=== PATIENT | female | born 1975 | race Caucasian/White ===

== ENCOUNTER 2016-08-03 12:49 | Emergency (ER) | payer OTHER ==
[~2016-08-03] VITALS: Ht 162.6 cm; Wt 99.8 kg
[~2016-08-03 12:49] MED LIST: ADAP45GE3; ALDACTONE25 MG; AMOX500C2; CLON0.5T3; HUMIRA; HYDR1CAP2; INFLIXIMAB IV; METH4TAB PO; METR500T; PRED5DRO2I OP; TRIA15OI9; ZLP10T; ZLP10T PO; [UNRECOGNIZED DRUG - OTHER]
--- OUTSIDE RECORDS SUMMARY | 2016-08-03 12:57 | XMS REPORT | Continuity of Care Document ---
Author Author [facility] Organization [facility] Address Unknown Phone Unavailable Care Team Providers Care Medical Assembler Name Role Phone Maynor Correa PCP [phone] Source Comments Some departments are not documenting in the electronic medical record. If you do not see the information that you expected, contact Release of Information in the Health Information Management department at [phone] for further assistance in locating additional records.[facility] Active Allergies and Adverse Reactions Allergen Noted Date Severity Reactions Comments Contrast Dye Iv, Iodine 08/22/2012 Medium RASH, ITCHING 08/22/12, Following MRI of Containing head, pt report itching, scratchy throat and rash to upper chest area Ultram 01/28/2011 Medium HIVES Current Medications Prescription Sig. Disp. Refills Start End Date Status Date zolpidem CR (AMBIEN CR) Take 12.5 mg by mouth at Active 12.5 mg tablet bedtime daily. dicyclomine (BENTYL) 10 Take 1-2 caps every 8 90 Cap 1 09/08/19 Active mg capsule hours as needed. 15 cholecalciferol (VITAMIN Take 1 Tab by mouth 90 Tab 3 09/11/19 Active D-3) 1,000 units tablet daily. 15 budesonide/formoterol Inhale 2 Puffs by mouth Active (SYMBICORT) 160/4.5 mcg twice daily as needed. HFAA inhalation hyoscyamine (ANASPAZ; Place 1 Tab under tongue 90 Tab 3 01/25/20 Active NULEV; SYMAX FASTABS; before meals and at 15 HYOMAX-FT; ED-SPAZ; bedtime as needed for OSCIMIN) 0.125 mg rapid Cramps. dissolve tablet VEDOLIZUMAB (ENTYVIO IV) Administer through vein Active as directed. tretinoin (RETIN-A) 0.05 Use pea-sized amount to 45 g 11 07/17/19 Active % topical cream entire face nightly, 16 starting out twice a week and increasing to nightly as tolerated. erythromycin/benzoyl Apply to acne prone skin 45 g 11 07/17/19 Active peroxide(+) (BENZAMYCIN) daily. 16 3 % / 5 % topical gel diphenoxylate/atropine Take 1 Tab by mouth four 120 Tab 1 08/21/19 Active (LOMOTIL) 2.5/0.025 mg times daily as needed for 16 tablet Diarrhea. diphenhydrAMINE Take 25 mg by mouth at Active (BENADRYL) 25 mg tablet bedtime daily. cycloSPORINE (RESTASIS) Apply 1 Drop to both eyes Active 0.05 % ophthalmic at bedtime daily. emulsion ondansetron (ZOFRAN) 4 mg Take 4 mg by mouth every Active tablet 8 hours as needed for Nausea. phenazopyridine Take 1 Tab by mouth three 10 Tab 0 08/27/19 Active (PYRIDIUM) 100 mg tablet times daily as needed for 16 Pain (dysuria). cyanocobalamin (VITAMIN INJECT 1ML INTO THE 1 mL 12 09/19/19 Active B-12, RUBRAMIN) 1,000 MUSCLE DIRECTED EVERY 16 mcg/mL injection 30 DAYS fluocinonide (LIDEX) 0.05 Apply to affected area 60 g 3 10/15/19 Active % topical ointment twice daily. 16 doxycycline(+) Take 1 cap twice per day 60 Cap 1 01/13/20 Active (VIBRAMYCIN) 100 mg for 6 weeks. 16 capsule promethazine (PHENERGAN) Take 1 Tab by mouth every 30 Tab 3 02/11/20 Active 25 mg tablet 6 hours as needed for 16 Nausea. SUMAtriptan succinate Take 1 Tab by mouth every 9 Tab 5 02/12/20 Active (IMITREX) 25 mg tablet 2 hours as needed for 16 Migraine symptoms. Dose may be repeated in 2 hours if needed. Max of 8 tablets in [address](+) Take 1 Cap by mouth twice 60 Cap 5 04/20/20 Active (PRILOSEC) 40 mg capsule daily before meals. 16 Indications: GASTROESOPHAGEAL REFLUX spironolactone Take 2 Tabs by mouth 60 Tab 2 04/20/20 Active (ALDACTONE) 50 mg tablet daily. Take with food. 16 valACYclovir (VALTREX) Take 4 tablets by mouth, 80 Tab 0 04/20/20 Active 500 mg tablet may repeat in 12 hours 16 for herpes outbreak as needed montelukast (SINGULAIR) Take 1 Tab by mouth at 90 Tab 3 05/08/20 Active 10 mg tablet bedtime daily. 16 nortriptyline (PAMELOR) Take 2 Caps by mouth at 60 Cap 5 05/15/20 Active 25 mg capsule bedtime daily. Take 25 mg 16 daily x 7 days, then increase to 50 mg daily. cholecalciferol(+) Take 1 cap by mouth every 12 Cap 0 05/27/20 Active (Vitamin D3) 50,000 units 7 days for a total of 12 16 capsule weeks. famotidine(+) (PEPCID) 40 Take 1 Tab by mouth at 30 Tab 5 05/27/20 Active mg tablet bedtime daily. 16 Active Problems Problem Noted Date Cough variant asthma 05/10/2016 Gastroesophageal reflux disease without esophagitis 05/10/2016 Costochondritis 05/08/2016 Chronic daily headache 07/19/2015 Overview: Her headache appears to be related to her medication use. Entyvio, valacyclovir, amaranthine can cause headaches. Polypharmacy is likely responsible for her chronic daily headaches. She reports snoring, pauses in respirations in sleep and daytime sleepiness. She can have LIZZ, causing her headaches. L ast Assessment & Plan: Will get MRI head W&WO contrast, as there was a concern for PML with her being on ENTYVIO. Will get sleep study and referral to Dr. Hartman for evaluation. Start Zonegran 100 Qdya and titrate to 100mg BID. 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 Having voiding dysfunction @ time as well, but was minimal. 2014 persistent microscopic hematuria and significant urgency, frequency ([id number]). 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 PVR 179mL, 161mL. - UDS on 09/25/15 to eval for overactivity and emptying - Will hold off on anticholinergics at this point given high PVRs Pleuritis 05/21/2015 Chronic cough 05/21/2015 Acute sinusitis 05/21/2015 Crohn's disease with intestinal obstruction (HCC) 03/20/2015 Persistent cough 12/10/2014 Depression, major, recurrent, mild (HCC) 05/04/2013 IUD 02/26/2013 Contraception management 02/26/2013 Dysmenorrhea 02/26/2013 Pelvic pain 01/26/2013 Dyspareunia 01/26/2013 Migraines 10/03/2012 Crohn's disease (HCC) 05/16/2012 Last Assessment & Plan: No signs of active inflammation in the eye today. Recommend that the patient stay off the lotemax and return for evaluation with me or Dr. Herrera if she has recurrence of her red eye. 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 Most Recent Encounters Date Type Specialty Providers Description 08/03/2016 Telephone Gastroenterology Jean Claude Bell MD Abdominal pain 07/29/2016 Infusion Infusion Jean Claude Bell MD Crohn's disease of small intestine with intestinal obstruction (HCC) (Primary Dx); Crohn's disease with intestinal obstruction, unspecified gastrointestinal tract location; Crohn's disease with other complication (HCC) 07/03/2016 Orders Only GastroenterJean Claude Vergara MD Hyperkalemia; Medication monitoring encounter 06/19/2016 Patient Letter Jean Claude Solorzano MD 06/17/2016 Infusion Infusion Jean Claude Bell MD Crohn's disease of small intestine with intestinal obstruction (HCC) (Primary Dx); Crohn's disease with intestinal obstruction, unspecified gastrointestinal tract location (HCC); Crohn's disease with other complication (HCC) 06/15/2016 Telephone Gastroenterology Jean Claude Bell MD Follow-up Phone Call; Elevated Blood Pressure 06/04/2016 Procedure visit Neurology Shaq Vasquez MD Chronic daily headache (Primary Dx) 06/04/2016 Telephone Gastroenterology Jean Claude Bell MD Insurance Concerns 06/03/2016 Documentation Dermatology Holland Oliveros MD 06/03/2016 Telephone Neurology Shaq Vasuqez MD Other - called ([facility]) to check the status of a PA for (Botox) and was advised that it had been approved per Emmanuelle. 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) (Primary Dx); Fever, unspecified fever cause; Gastroesophageal reflux disease with esophagitis 05/27/2016 Telephone Gastroenterology Jean Claude Bell MD Results 05/26/2016 Hospital Radiology Jean Claude Bell MD Encounter 05/25/2016 [facility] Jean Claude Bell MD Crohn's colitis (HCC) Encounter 05/25/2016 Endo Rslt Enc Maynor Correa MD 05/25/2016 Anesthesia Mariela Galvan DO Event 05/25/2016 Surgery Rachel Huff MD ESOPHAGOGASTRODUODENOSCOP Y with MAC with any provider as patient to have MRE on same day of this procedure at [facility] re: Crohn's 05/22/2016 Telephone Gastroenterology Jean Claude Bell MD Appointment Question 05/22/2016 Screening Form 05/18/2016 Telephone Gastroenterology Jean Claude Bell MD Patient Questions 05/15/2016 [facility] Gary Herrera, Crohn's disease, Encounter unspecified, with unspecified complications (HCC) 05/15/2016 Office Visit Neurology Lea Bruno MD Crohn's disease with complication, unspecified gastrointestinal tract location (HCC) (Primary Dx); Nutritional deficiency; Personal history of nutritional deficiency; Nonspecific abnormal serum enzyme levels 05/14/2016 Hospital Radiology Isamar Paovn MD Encounter 05/14/2016 Hospital Radiology Doctor, Miscellaneous Encounter 05/13/2016 Ancillary Obstetrics & Gynecology Isamar Pavon MD Microcalcification of Orders left breast on mammogram (Primary Dx) 05/13/2016 Orders Only Obstetrics & Gynecology Isamar Pavon MD Microcalcification of left breast on mammogram (Primary Dx) 05/08/2016 Hospital Radiology Isamar Pavon MD Encounter 05/08/2016 Hospital Radiology Isamar Pavon MD Encounter 05/08/2016 Office Visit Pulmonology Bobo Irizarry MD Chronic cough ( Primary Dx); Crohn's disease without complication, unspecified gastrointestinal tract location (HCC); Costochondritis; Cough variant asthma; Gastroesophageal reflux disease without esophagitis 05/08/2016 Ancillary Obstetrics & Gynecology Isamar Pavon MD Inconclusive mammography Orders (Primary Dx) 05/08/2016 Orders Only Neurology Lea Bruno MD Other migraine without status migrainosus, not intractable (Primary Dx) 05/05/2016 Telephone Gastroenterology Jean Claude Bell MD Test 05/04/2016 Infusion Infusion Jean Claude Bell MD Crohn's disease of small intestine with intestinal obstruction (HCC) (Primary Dx); Crohn's disease with intestinal obstruction, unspecified gastrointestinal tract location (HCC); Crohn's disease with other complication (HCC) 05/04/2016 Orders Only Obstetrics & Gynecology Isamar Pavon MD Inconclusive mammography (Primary Dx) Social History Tobacco Use Types Packs/Day Years Used Date Never Smoker Smokeless Tobacco: Never Used Alcohol Use Drinks/Week oz/Week Comments No 0 Standard 0.0 drinks or equivalent Last Filed Vital Signs Vital Sign Reading Time Taken Blood Pressure 120/78 07/29/2016 4:42 PM [employer] REPAIRER Pulse 96 07/29/2016 4:42 PM [employer] REPAIRER Temperature 36.6 C (97.9 F) 07/29/2016 2:38 PM [employer] REPAIRER Respiratory Rate 16 05/27/2016 1:11 PM [employer] REPAIRER Height 1.638 m (5' 4.49") 06/17/2016 4:17 PM [employer] REPAIRER Weight 99 kg (218 lb 4.1 oz) 06/17/2016 4:17 PM [employer] REPAIRER Body Mass Index 36.9 06/17/2016 4:17 PM [employer] REPAIRER Oxygen Saturation 99% 06/17/2016 4:19 PM [employer] REPAIRER Plan of Care Date Type Specialty Providers Description 08/20/2016 Appointment Gastroenterology Jean Claude Bell MD [address] [place] [address] [phone] (Fax) 08/21/2016 Appointment Neurology 09/09/2016 Appointment Infusion 10/14/2016 Appointment Neurology Shaq Vasquez MD [address] [place] [address] [phone] (Fax) Health Maintenance Due Date Last Done Comments Physical (Comprehensive) 1983 Exam Pertussis Vaccine 1987 Tetanus Vaccine 1993 Influenza Vaccine 02/06/2016 Breast Cancer Screening 04/29/2017 04/29/2016 Cervical Cancer Screening 04/06/2019 04/06/2016, 01/25/2013 Procedures from Last 3 Months Procedure Name Priority Date/Time Associated Diagnosis Comments LA CHEMODERVATE Routine 06/04/2016 Chronic daily headache Results for this FACIAL/TRIGEM/CERV MUSC 1:52 PM [employer] REPAIRER procedure are in the MIGRAINE results section. LA BOTULINUM TOXIN A PER Routine 06/04/2016 Chronic daily headache Results for this UNIT 1:52 PM [employer] REPAIRER procedure are in the results section. PROCEDURE RECORD-SCAN 05/27/2016 Results for this 12:47 PM [employer] REPAIRER procedure are in the results section. ESOPHAGOGASTRODUODENOSCOP 05/25/2016 Crohn's colitis (HCC) Y with MAC with any 4:35 PM [employer] REPAIRER provider as patient to have MRE on same day of this procedure at [facility] re: Crohn's Special Needs Latoya cld & sched appt / She will let pt know appt date/time 05/05/16 @ 159 Results from Last 3 Months COMPREHENSIVE METABOLIC PANEL (07/29/2016 2:36 PM)Only the most recent of 3 results within the time period is included. Component Value Range Sodium 136 (L) 137-147 MMOL/L Potassium 3.7 3.5-5.1 MMOL/L Chloride 103 98-110 MMOL/L Glucose 121 (H) 70-100 MG/DL Blood Urea Nitrogen 7 7-25 MG/DL Creatinine 0.72 0.4-1.00 MG/DL Calcium 9.4 8.5-10.6 MG/DL Total Protein 7.2 6.0-8.0 G/DL Total Bilirubin 0.6 0.3-1.2 MG/DL Albumin 4.4 3.5-5.0 G/DL Alk Phosphatase 47 25-110 U/L AST (SGOT) 14 7-40 U/L CO2 24 21-30 MMOL/L ALT (SGPT) 17 7-56 U/L Anion Gap 9 3-12 eGFR Non >60Comment: >60 mL/min The eGFR is not validated for use in drug dosing adjustments. Continue to use estimated creatinine clearance per dosing reference text. Please contact the Clinical Pharmacist for questions. eGFR >60Comment: >60 mL/min The eGFR is not validated for use in drug dosing adjustments. Continue to use estimated creatinine clearance per dosing reference text. Please contact the Clinical Pharmacist for questions. Specimen Blood CBC (07/29/2016 2:36 PM)Only the most recent of 3 results within the time period is included. Component Value Range White Blood Cells 7.5 4.5-11.0 K/UL RBC 4.70 4.0-5.0 M/UL Hemoglobin 14.3 12.0-15.0 GM/DL Hematocrit 43.2 36-45 % MCV 91.9 80-100 FL MCH 30.3 26-34 PG MCHC 33.0 32.0-36.0 G/DL RDW 12.3 11-15 % Platelet Count 361 150-400 K/UL MPV 8.1 7-11 FL Specimen Blood BASIC METABOLIC PANEL (06/25/2016) Component Value Range Sodium 138 Potassium 4.2 Chloride 99 CO2 27 Blood Urea Nitrogen 9 Creatinine 0.65 Glucose 93 Calcium 9.8 Specimen Blood CHEMODENERVATION (06/04/2016 1:52 PM) Narrative Shaq Vasquez MD 06/04/20161:52 PM Botulinum toxin injection for chronic daily headaches This is patient's first round of injections. Patient has at least 21 days of headache per month, with an average duration of 4 hours or more, and at least half had migrainous features. Dose in Units: 155 Units drawn up 155 Units discarded 0 Procedure Note: Using a concentration of 5 units/ 0.1 cc, the patient received 31 injections of five units of Botox into the face, head, neck and shoulder locations for the PREEMPT protocol (Kezia GRANT, and coauthors. Cephalalgia, 2010;30:793) Right Left Procerus One in the midline Trolley Coach Driver supercilli one one Frontalis two two Temporalis four four Occipitalis three three Sub-occipital two two Tapezius three three Adverse effects at time of injection: None Follow up: Clinc6 weeks Target time for next injection: 13 weeks Was patient given the biological specific REMS sheet? No Lot number: [id number] Expiry date: 01/2019 Dr. Bruno did these injections under my direct supervision and with my assistance MONICA Vasquez MD, MPH PROCEDURE RECORD-SCAN (05/27/2016 12:47 PM) Narrative Ordered by an unspecified provider. MRI PELVIS WO/W CONTRAST (05/26/2016 1:25 PM) Impressions Unchanged unremarkable MR enterography. Approved by Kaden Pelaez M.D. on 05/26/2016 3:02 PM By my electronic signature, I attest that I have personally reviewed the images for this examination and formulated the interpretations and opinions expressed in this report Finalized by Scotty Valle M.D. on 05/26/2016 3:31 PM. Dictated by Kaden Pelaez M.D. on 05/26/2016 2:30 PM. Narrative MRI ABDOMEN AND PELVIS Clinical Indication: Crohn's colitis, with intestinal obstruction. Technique:Multisequence and multiplanar MR imaging was obtained through the abdomen and pelvis before and following the administration of IV gadolinium contrast. IV Contrast:Multihance Bowel contrast: Breeza and water. Magnet:3 Rosette Siemens Comparison: Prior MRI September 26, 2014. ABDOMEN FINDINGS: Lower Thorax: Unremarkable. Liver and Biliary system: There is a tiny right hepatic cyst. The liver is otherwise unremarkable. Spleen: Unremarkable. Adrenal Glands and Kidneys: Unremarkable. Pancreas and Retroperitoneum: Unremarkable. Aorta and Major Vessels: Unremarkable. Bowel, Mesentery and Peritoneal space: There is poor distention of multiple small bowel loops secondary to patient intolerance of oral contrast. There is no evidence of small bowel obstruction. No areas of bowel wall thickening or mucosal hyperenhancement are identified. Pelvis findings: Pelvis: There is an IUD within the uterus. There is a small probable right corpus luteum ovarian cyst. The pelvis is otherwise unremarkable. Abdominal wall and Osseous Structures: Unremarkable. Procedure Note Interface, Radiant Results - Tue May 26, 2016 3:34 PM [employer] REPAIRER MRI ABDOMEN AND PELVIS Clinical Indication: Crohn's colitis, with intestinal obstruction. Technique: Multisequence and multiplanar MR imaging was obtained through the abdomen and pelvis before and following the administration of IV gadolinium contrast. IV Contrast:Multihance Bowel contrast: Breeza and water. Magnet:3 Rosette Siemens Comparison: Prior MRI September 26, 2014. ABDOMEN FINDINGS: Lower Thorax: Unremarkable. Liver and Biliary system: There is a tiny right hepatic cyst. The liver is otherwise unremarkable. Spleen: Unremarkable. Adrenal Glands and Kidneys: Unremarkable. Pancreas and Retroperitoneum: Unremarkable. Aorta and Major Vessels: Unremarkable. Bowel, Mesentery and Peritoneal space: There is poor distention of multiple small bowel loops secondary to patient intolerance of oral contrast. There is no evidence of small bowel obstruction. No areas of bowel wall thickening or mucosal hyperenhancement are identified. Pelvis findings: Pelvis: There is an IUD within the uterus. There is a small probable right corpus luteum ovarian cyst. The pelvis is otherwise unremarkable. Abdominal wall and Osseous Structures: Unremarkable. IMPRESSION Unchanged unremarkable MR enterography. Approved by Kaden Pelaez M.D. on 05/26/2016 3:02 PM By my electronic signature, I attest that I have personally reviewed the images for this examination and formulated the interpretations and opinions expressed in this report Finalized by Scotty Valle M.D. on 05/26/2016 3:31 PM. Dictated by Kaden Pelaez M.D. on 05/26/2016 2:30 PM. MRI ABD WO/W CONTRAST (05/26/2016 1:25 PM) Impressions Unchanged unremarkable MR enterography. Approved by Kaden Pelaez M.D. on 05/26/2016 3:02 PM By my electronic signature, I attest that I have personally reviewed the images for this examination and formulated the interpretations and opinions expressed in this report Finalized by Scotty Valle M.D. on 05/26/2016 3:31 PM. Dictated by Kaden Pelaez M.D. on 05/26/2016 2:30 PM. Narrative MRI ABDOMEN AND PELVIS Clinical Indication: Crohn's colitis, with intestinal obstruction. Technique:Multisequence and multiplanar MR imaging was obtained through the abdomen and pelvis before and following the administration of IV gadolinium contrast. IV Contrast:Multihance Bowel contrast: Breeza and water. Magnet:3 Rosette Siemens Comparison: Prior MRI September 26, 2014. ABDOMEN FINDINGS: Lower Thorax: Unremarkable. Liver and Biliary system: There is a tiny right hepatic cyst. The liver is otherwise unremarkable. Spleen: Unremarkable. Adrenal Glands and Kidneys: Unremarkable. Pancreas and Retroperitoneum: Unremarkable. Aorta and Major Vessels: Unremarkable. Bowel, Mesentery and Peritoneal space: There is poor distention of multiple small bowel loops secondary to patient intolerance of oral contrast. There is no evidence of small bowel obstruction. No areas of bowel wall thickening or mucosal hyperenhancement are identified. Pelvis findings: Pelvis: There is an IUD within the uterus. There is a small probable right corpus luteum ovarian cyst. The pelvis is otherwise unremarkable. Abdominal wall and Osseous Structures: Unremarkable. Procedure Note Interface, Radiant Results - Tue May 26, 2016 3:34 PM [employer] REPAIRER MRI ABDOMEN AND PELVIS Clinical Indication: Crohn's colitis, with intestinal obstruction. Technique: Multisequence and multiplanar MR imaging was obtained through the abdomen and pelvis before and following the administration of IV gadolinium contrast. IV Contrast:Multihance Bowel contrast: Breeza and water. Magnet:3 Rosette Siemens Comparison: Prior MRI September 26, 2014. ABDOMEN FINDINGS: Lower Thorax: Unremarkable. Liver and Biliary system: There is a tiny right hepatic cyst. The liver is otherwise unremarkable. Spleen: Unremarkable. Adrenal Glands and Kidneys: Unremarkable. Pancreas and Retroperitoneum: Unremarkable. Aorta and Major Vessels: Unremarkable. Bowel, Mesentery and Peritoneal space: There is poor distention of multiple small bowel loops secondary to patient intolerance of oral contrast. There is no evidence of small bowel obstruction. No areas of bowel wall thickening or mucosal hyperenhancement are identified. Pelvis findings: Pelvis: There is an IUD within the uterus. There is a small probable right corpus luteum ovarian cyst. The pelvis is otherwise unremarkable. Abdominal wall and Osseous Structures: Unremarkable. IMPRESSION Unchanged unremarkable MR enterography. Approved by Kaden Pelaez M.D. on 05/26/2016 3:02 PM By my electronic signature, I attest that I have personally reviewed the images for this examination and formulated the interpretations and opinions expressed in this report Finalized by Scotty Valle M.D. on 05/26/2016 3:31 PM. Dictated by Kaden Pelaez M.D. on 05/26/2016 2:30 PM. EGD (05/25/2016 5:26 PM) Component Value Range Provation Report Patient Name: Brett Franz Procedure Date: 05/25/2016 5:26 PM CSN: [id number] Date of : 1975 Gender: Female Attending Physician: Rachel Huff MD Procedure: Upper GI endoscopy Indications: He artburn, Nausea, long standing history of CD, on entyvio. Providers: Rachel Huff MD (Doctor), Marco Antonio Saavedra MD (Fellow), Roseann Marie (Nurse), Magda Redd Public Service Administrator (Public Service Administrator) Referring Physician: Maynor Correa Medications: Mo nitored Anesthesia Care Complications: No immediate complications. Procedure: Pre-Anesthesia Assessment: - Prior to the procedure, a History and Physical was performed, and patient medications and allergies were reviewed. The patient's tolerance of previous anesthesia was also reviewed. The risks and benefits of the procedure and the sedation options and risks were discussed with the patient. All questions were answered, and informed consent was obtained. Prior Anticoagulants: The patient has taken no previous anticoagulant or antiplatelet agents. ASA Grade Assessment: III - A patient with severe systemic disease. After reviewing the risks and benefits, the patient was deemed in satisfactory condition to undergo the procedure. After obtaining informed consent, the endoscope was passed under direct vision. Throughout the procedure, the patient's blood pressure, pulse, and oxygen saturations were monitored continuously. The Endoscope [id number] was introduced through the mouth, and advanced to the third part of duodenum. The upper GI endoscopy was accomplished without difficulty. The patient tolerated the procedure well. Findings: Esophagogastric landmarks were identified: the gastroesophageal junction was found at 35 cm and the site of hiatal narrowing was found at 38 cm from the incisors. A 3 cm hiatus hernia was present. LA Grade A (one or more mucosal breaks less than 5 mm, not extending between tops of 2 mucosal folds) esophagitis with no bleeding was found in the lower third of the esophagus. The entire examined stomach was normal. The examined duodenum was normal. Impression: - Esophagogastric landmarks identified. - 3 cm hiatus hernia. - LA Grade A esophagitis. - Normal stomach. - Normal examined duodenum. - No evidence of active Crohn's disease. - No specimens collected. Estimated Blood Loss: Estimated blood loss: none. Recommendation: - Patient has a contact number available for emergencies. The signs and symptoms of potential delayed complications were discussed with the patient. Return to normal activities tomorrow. Written discharge instructions were provided to the patient. - Resume previous diet. - Continue present medications. - Return to referring physician. Scope In: 5:26:55 PM Scope Out: 5:31:31 PM Total Procedure Duration Time 0 hours 4 minutes 36 seconds Procedure Code(s): --- Professional --- 22401, Esophagogastroduodenoscopy, flexible, transoral; diagnostic, including collection of specimen(s) by brushing or washing, when performed (separate procedure) Diagnosis Code(s): --- Professional --- K44.9, Diaphragmatic hernia without obstruction or gangrene K20.9, Esophagitis, unspecified R12, Heartburn R11.0, Nausea CPT copyright 2015 [employer]. All rights reserved. The codes documented in this report are preliminary and upon soda clerk review may be revised to meet current compliance requirements. Attending Participation: I was present and participated during the entire procedure, including non-willsno portions. MD Rachel South MD 05/25/2016 5:36:54 PM The attending physician has electronically signed and finalized this document. Marco Antonio Saavedra MD Number of Addenda: 0 Note Initiated On: 05/25/2016 5:26 PM TEST-URINE (05/25/2016 3:31 PM) Component Value Range Urine-HCG NEG Specific [place] 1.014 Specimen Urine VITAMIN B1 (THIAMINE) WHOLE BLD (05/15/2016 1:26 PM) Component Value Range Vitamin B1,Whole Blood 134Comment: Reference range: 70 to 180 Unit: nmol/L ADDITIONAL INFORMATION This test was developed and its performance characteristics determined by [facility] in a manner consistent with CLIA requirements. This test has not been cleared or approved by the U.S. Food and Drug Administration. [facility] [employer], [address], [place] [address] Specimen Blood COPPER (05/15/2016 1:26 PM) Component Value Range Copper, Serum 1.04Comment: Reference range: 0.75 to 1.45 Unit: mcg/mL ADDITIONAL INFORMATION This test was developed and its performance characteristics determined by [facility] in a manner consistent with CLIA requirements. This test has not been cleared or approved by the U.S. Food and Drug Administration. [facility], [address] [place] [id number] Specimen Blood ZINC (05/15/2016 1:26 PM) Component Value Range Zinc 0.83Comment: Reference range: 0.66 to 1.10 Unit: mcg/mL ADDITIONAL INFORMATION This test was developed and its performance characteristics determined by [facility] in a manner consistent with CLIA requirements. This test has not been cleared or approved by the U.S. Food and Drug Administration. [facility], [address] [place] [id number] Specimen Blood IODINE LEVEL (05/15/2016 1:26 PM) Component Value Range Iodine 53Comment: Reference range: 40 to 92 Unit: ng/mL ADDITIONAL INFORMATION This test was developed and its performance characteristics determined by [facility] in a manner consistent with CLIA requirements. This test has not been cleared or approved by the U.S. Food and Drug Administration. [facility], [address] [place] [id number] Specimen Blood PYRIDOXAL 5 PHOSPHATE (05/15/2016 1:26 PM) Component Value Range Pyridoxal 5 Phosphate 5Comment: Reference range: 5 to 50 Unit: mcg/L ADDITIONAL INFORMATION This test was developed and its performance characteristics determined by [facility] in a manner consistent with CLIA requirements. This test has not been cleared or approved by the U.S. Food and Drug Administration. [facility], [address] [place] [id number] Specimen Blood CALCIUM (05/15/2016 1:26 PM) Component Value Range Calcium 9.1 8.5-10.6 MG/DL Specimen Blood 25-OH VITAMIN D (D2 + D3) (05/15/2016 1:26 PM) Component Value Range Vitamin D(25-OH)Total 22.6 (L) 30-80 NG/ML Specimen Blood VITAMIN B12 (05/15/2016 1:26 PM) Component Value Range Vitamin B12 320 180-914 PG/ML Specimen Blood MAMMO DIAG LT (05/14/2016 3:50 PM)Only the most recent of 2 results within the time period is included. Impressions ACR BI-RADS Assessments: Post procedure mammogram for marker placement RECOMMENDATION: Routine screening mammogram in 11 months.The pathology results have been reviewed and results are concordant with recommendations as noted. Narrative Last mammogram was performed less than 1 month ago. Reason for exam: addl evaluation requested from abnormal screening. [id number] STEREO BR BX CLIP DEPL SPEC LT: LEFT BREAST - MAY 14, 2016 - Radiologist: Chalino Cotter M.D. Technologist: BENITA CROOKS, Spine Surgeon Aircraft Pneudraulic Systems Mechanic Prior study comparison: May 08, 2016, left breast [id number] US BREAST TARGET LT, performed at [facility].May 08, 2016, left breast [id number] MAM[facility] DIAG LT, [facility]. History: Pleomorphic calcifications seen within the left breast at approximately 3:00, posterior depth. Technique: The procedure was performed by this Radiologist. Informed consent was obtained. Using sterile preparation, local anesthetic, and stereotaxic guidance, approximately 12, 9 Gauge samples were obtained with an automated vacuum assisted sampling device, without complication. A marking clip was placed. A post procedural upright mammogram was obtained, documenting clip placement. The clip deployed at the appropriate location. Specimens were sent in formalin for histologic sampling. Targeted calcifications are seen within the specimen, considered adequate. By my electronic signature, I attest that I have personally reviewed the images for this examination and formulated the interpretations and opinions expressed in this report PATHOLOGY RESULTS: BENIGN Pathologist: Amos Patterson at [facility] Benign adenosis, apocrine metaplasia, and microcalcifications. Final Diagnosis: A. Breast tissue, "left 3-4:00 with calcs", biopsy: Nodular adenosis and apocrine metaplasia with associated microcalcifications. Attestation: By this signature, I attest that I have personally formulated the final interpretation expressed in this report and that the above diagnosis is based upon my examination of the slides and/or other material indicated in this report. +++Electronically Signed Out By+++ ksw/05/15/2016 Interpreted by: Amos Patterson MD, Attending Physician Khalif Willard D.O. 05/18/2016 [id number] MAMMO DIAG LT: LEFT BREAST - MAY 14, 2016 - Routine views. Radiologists: Chalino Cotter M.D.; Tu Santacruz M.D. Technologist: BENITA CROOKS, [employer] Aircraft Pneudraulic Systems Mechanic There are scattered areas of fibroglandular density.History- Status post stereotactic guided biopsy with clip placement. Lateral and CC views document clip placement at approximately 3:00. Finalized by Chalino Cotter M.D. on 05/20/2016 8:21 AM. Dictated by Dilip Santacruz M.D. on 05/14/2016 3:27 PM. By my electronic signature, I attest that I have personally reviewed the images for this examination and formulated the interpretations and opinions expressed in this report Electronically signed and approved by: Chalino Cottre M.D. 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 Reason for exam: addl evaluation requested from abnormal screening. [id number] STEREO BR BX CLIP DEPL SPEC LT: LEFT BREAST - MAY 14, 2016 - Radiologist: Chalino Cotter M.D. Technologist: BENITA CROOKS Spine Surgeon Aircraft Pne[employer]raulic Systems Mechanic Prior study comparison: May 08, 2016, left breast [id number] US BREAST TARGET LT, performed at [facility]. May 08, 2016, left breast [id number] MAMMO DIAG LT, performed at [facility]. History: Pleomorphic calcifications seen within the left breast at approximately 3:00, posterior depth. Technique: The procedure was performed by this Radiologist. Informed consent was obtained. Using sterile preparation, local anesthetic, and stereotaxic guidance, approximately 12, 9 Gauge samples were obtained with an automated vacuum assisted sampling device, without complication. A marking clip was placed. A post procedural upright mammogram was obtained, documenting clip placement. The clip deployed at the appropriate location. Specimens were sent in formalin for histologic sampling. Targeted calcifications are seen within the specimen, considered adequate. By my electronic signature, I attest that I have personally reviewed the images for this examination and formulated the interpretations and opinions expressed in this report PATHOLOGY RESULTS: BENIGN Pathologist: Amos Patterson at [facility] Benign adenosis, apocrine metaplasia, and microcalcifications. Final Diagnosis: A. Breast tissue, "left 3-4:00 with calcs", biopsy: Nodular adenosis and apocrine metaplasia with associated microcalcifications. Attestation: By this signature, I attest that I have personally formulated the final interpretation expressed in this report and that the above diagnosis is based upon my examination of the slides and/or other material indicated in this report. +++Electronically Signed Out By+++ ksw/05/15/2016 Interpreted by: Amos Patterson MD, Attending Physician Khalif Willard D.O. 05/18/2016 [id number] MAMMO DIAG LT: LEFT BREAST - MAY 14, 2016 - Routine views. Radiologists: Chalino Cotter M.D.; Tu Santacruz M.D. Technologist: BENITA CROOKS, Spine Surgeon Aircraft Pne[employer]raulic Systems Mechanic There are scattered areas of fibroglandular density. History- Status post stereotactic guided biopsy with clip placement. Lateral and CC views document clip placement at approximately 3:00. Finalized by Chalino Cotter M.D. on 05/20/2016 8:21 AM. Dictated by Dilip Santacruz M.D. on 05/14/2016 3:27 PM. By my electronic signature, I attest that I have personally reviewed the images for this examination and formulated the interpretations and opinions expressed in this report Electronically signed and approved by: Chalino Cotter M.D. [id number] IMPRESSION ACR BI-RADS Assessments: Post procedure mammogram for marker placement RECOMMENDATION: Routine screening mammogram in 11 months. The pathology results have been reviewed and results are concordant with recommendations as noted. STEREO BR BX/CLIP DEPL/SPEC/LT (05/14/2016 3:32 PM) Impressions ACR BI-RADS Assessments: Post procedure mammogram for marker placement RECOMMENDATION: Routine screening mammogram in 11 months.The pathology results have been reviewed and results are concordant with recommendations as noted. Narrative Last mammogram was performed less than 1 month ago. Reason for exam: addl evaluation requested from abnormal screening. [id number] STEREO BR BX CLIP DEPL SPEC LT: LEFT BREAST - MAY 14, 2016 - Radiologist: Chalino Cotter M.D. Technologist: BEINTA CROOKS, Spine Surgeon Aircraft Pne[employer]raulic Systems Mechanic Prior study comparison: May 08, 2016, left breast [id number] US BREAST TARGET LT, performed at [facility].May 08, 2016, left breast [id number] MAMMO DIAG LT, performed at [facility]. History: Pleomorphic calcifications seen within the left breast at approximately 3:00, posterior depth. Technique: The procedure was performed by this Radiologist. Informed consent was obtained. Using sterile preparation, local anesthetic, and stereotaxic guidance, approximately 12, 9 Gauge samples were obtained with an automated vacuum assisted sampling device, without complication. A marking clip was placed. A post procedural upright mammogram was obtained, documenting clip placement. The clip deployed at the appropriate location. Specimens were sent in formalin for histologic sampling. Targeted calcifications are seen within the specimen, considered adequate. By my electronic signature, I attest that I have personally reviewed the images for this examination and formulated the interpretations and opinions expressed in this report PATHOLOGY RESULTS: BENIGN Pathologist: Amos Patterson at [facility] Benign adenosis, apocrine metaplasia, and microcalcifications. Final Diagnosis: A. Breast tissue, "left 3-4:00 with calcs", biopsy: Nodular adenosis and apocrine metaplasia with associated microcalcifications. Attestation: By this signature, I attest that I have personally formulated the final interpretation expressed in this report and that the above diagnosis is based upon my examination of the slides and/or other material indicated in this report. +++Electronically Signed Out By+++ ksw/05/15/2016 Interpreted by: Amos Patterson MD, Attending Physician Khalif Willard D.O. 05/18/2016 [id number] MAMMO DIAG LT: LEFT BREAST - MAY 14, 2016 - Routine views. Radiologists: Chalino Cotter M.D.; Tu Santacruz M.D. Technologist: BENITA CROOKS, Spine Surgeon Aircraft Pne[employer]raulic Systems Mechanic There are scattered areas of fibroglandular density.History- Status post stereotactic guided biopsy with clip placement. Lateral and CC views document clip placement at approximately 3:00. Finalized by Chalino Cotter M.D. on 05/20/2016 8:21 AM. Dictated by Dilip Santacruz M.D. on 05/14/2016 3:27 PM. By my electronic signature, I attest that I have personally reviewed the images for this examination and formulated the interpretations and opinions expressed in this report Electronically signed and approved by: Chalino Cotter M.D. 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 Reason for exam: addl evaluation requested from abnormal screening. [id number] STEREO BR BX CLIP DEPL SPEC LT: LEFT BREAST - MAY 14, 2016 - Radiologist: Chalino Cotter M.D. Technologist: BENITA CROOKS, Spine Surgeon Aircraft Pne[employer]ulic Systems Mechanic Prior study comparison: May 08, 2016, left breast [id number] US BREAST TARGET LT, performed at [facility]. May 08, 2016, left breast [id number] MAMMO DIAG LT, performed at [facility]. History: Pleomorphic calcifications seen within the left breast at approximately 3:00, posterior depth. Technique: The procedure was performed by this Radiologist. Informed consent was obtained. Using sterile preparation, local anesthetic, and stereotaxic guidance, approximately 12, 9 Gauge samples were obtained with an automated vacuum assisted sampling device, without complication. A marking clip was placed. A post procedural upright mammogram was obtained, documenting clip placement. The clip deployed at the appropriate location. Specimens were sent in formalin for histologic sampling. Targeted calcifications are seen within the specimen, considered adequate. By my electronic signature, I attest that I have personally reviewed the images for this examination and formulated the interpretations and opinions expressed in this report PATHOLOGY RESULTS: BENIGN Pathologist: Amos Patterson at [facility] Benign adenosis, apocrine metaplasia, and microcalcifications. Final Diagnosis: A. Breast tissue, "left 3-4:00 with calcs", biopsy: Nodular adenosis and apocrine metaplasia with associated microcalcifications. Attestation: By this signature, I attest that I have personally formulated the final interpretation expressed in this report and that the above diagnosis is based upon my examination of the slides and/or other material indicated in this report. +++Electronically Signed Out By+++ ksw/05/15/2016 Interpreted by: Amos Patterson MD, Attending Physician Khalif Willard D.O. 05/18/2016 [id number] MAMMO DIAG LT: LEFT BREAST - MAY 14, 2016 - Routine views. Radiologists: Chalino Cotter M.D.; Tu Santacruz M.D. Technologist: BENITA CROOKS, Spine Surgeon [employer] P[employer] Systems Mechanic There are scattered areas of fibroglandular density. History- Status post stereotactic guided biopsy with clip placement. Lateral and CC views document clip placement at approximately 3:00. Finalized by Chalino Cotter M.D. on 05/20/2016 8:21 AM. Dictated by Dilip Santacruz M.D. on 05/14/2016 3:27 PM. By my electronic signature, I attest that I have personally reviewed the images for this examination and formulated the interpretations and opinions expressed in this report Electronically signed and approved by: Chalino Ctoter M.D. [id number] IMPRESSION ACR BI-RADS Assessments: Post procedure mammogram for marker placement RECOMMENDATION: Routine screening mammogram in 11 months. The pathology results have been reviewed and results are concordant with recommendations as noted. SURGICAL PATHOLOGY (05/14/2016 8:36 AM) Component Value Range PATHOLOGY REPORT [facility] [email or web address] Leonela Morataya MD, PhD, Director of Anatomic Pathology Department of Pathology and Laboratory Medicine [address] [place] [id number] Surgical Pathology Office: [phone] SURGICAL PATHOLOGY REPORT NAME: MARIA M MCCOY SURG PATH #: [id number] MR #: [id number] SPECIMEN CLASS: SR BILLING #: [id number] ALT ID #: LOCATION: [facility] DATE OF PROCEDURE: 05/14/2016 AGE: 41 SEX: F DATE RECEIVED: 05/15/2016 : 1975 TIME RECEIVED: 08:36 PHYSICIAN: ISAMAR PAVON MD DATE OF REPORT: 05/18/2016 COPY TO: CHALINO COTTER DATE OF PRINTIN05/18/2016 ################################################## ###################### Final Diagnosis: A. Breast tissue, "left 3-4:00 with calcs", biopsy: Nodular adenosis and apocrine metaplasia with associated microcalcifications. Attestation: By this signature, I attest that I have personally formulated the final interpretation expressed in this report and that the above diagnosis is based upon my examination of the slides and/or other material indicated in this report. +++Electronically Signed Out By+++ priscillaw/05/15/2016 Interpreted by: Amos Patterson MD, Attending Physician Khalif Willard D.O. 05/18/2016 ################################################## ###################### Material Received: A: left 3-4:00 with calcs History: 41-year-old female with a history of abnormal mammogram with microcalcifications. Gross Description: A. Received in formalin labeled "left breast at 3:00-4:00 with calcifications" is a 4.8 x 1.7 x 0.6 cm aggregate of cylindrical yellow-saavedra, bloodstained, fatty tissue fragments. The specimen is entirely submitted in cassettes A1-A3. The specimen is placed in formalin at 3:15 PM on May 14, 2016. (tn) saavedra/05/15/2016 Khalif Willard D.O. BREAST TARGET LT (05/08/2016 3:35 PM) Impressions ACR BI-RADS Assessments: BIRAD 3 -Probably benign (Overall) Left breast DIAG MAMMO LEFT: BIRAD 3 -probably benign finding. RECOMMENDATION: Follow-up diagnostic mammogram of the left breast in 6 months. Narrative Last mammogram was performed less than 1 month ago. Reason for exam: addl eval requested from prior study. Performed by: Tricia Rosado [id number] MAMMO DIAG LT: LEFT BREAST - MAY 08, 2016 - Routine views. Radiologist: Shneg Krueger M.D. 2-D images of the left breast were obtained.History. 41-year-old female presents for screening detected left breast mass and calcifications.There is a 0.9 cm oval mass at approximately 12:00/central breast. There is a 0.5 cm group of amorphous calcifications at 3:00, posterior depth. Targeted ultrasound of the left breast will be performed [id number] US BREAST TARGET LT: LEFT BREAST - MAY 08, 2016 - Standard views. Radiologists: Sheng Krueger M.D.; MELITON BARRETT Technologist: Nataliia Grady, Data Governance Analyst Ultrasound was performed to evaluate mass identified on mammography. At 1:00 5 cm from the nipple, there is an 8 mm benign cyst which accounts for the finding on mammogram. The calcifications are not identified.Imaging of the left axilla demonstrates normal lymph node. Impression: 5 mm single group of amorphous calcifications. These are probably benign and six-month follow-up mammogram is recommended. Options were discussed with patient and patient would prefer stereotactic biopsy. This will be scheduled. Electronically signed and approved by: Sheng Krueger M.D. 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 Reason for exam: addl eval requested from prior study. Performed by: Tricia Rosado [id number] MAMMO DIAG LT: LEFT BREAST - MAY 08, 2016 - Routine views. Radiologist: Sheng Krueger M.D. 2-D images of the left breast were obtained.History. 41-year-old female presents for screening detected left breast mass and calcifications.There is a 0.9 cm oval mass at approximately 12:00/central breast. There is a 0.5 cm group of amorphous calcifications at 3:00, posterior depth. Targeted ultrasound of the left breast will be performed [id number] US BREAST TARGET LT: LEFT BREAST - MAY 08, 2016 - Standard views. Radiologists: Sheng Krueger M.D.; MELITON BARRETT Technologist: Nataliia Grady, Data Governance Analyst Ultrasound was performed to evaluate mass identified on mammography. At 1:00 5 cm from the nipple, there is an 8 mm benign cyst which accounts for the finding on mammogram. The calcifications are not identified.Imaging of the left axilla demonstrates normal lymph node. Impression: 5 mm single group of amorphous calcifications. These are probably benign and six-month follow-up mammogram is recommended. Options were discussed with patient and patient would prefer stereotactic biopsy. This will be scheduled. Electronically signed and approved by: Sheng Krueger M.D. [id number] IMPRESSION ACR BI-RADS Assessments: BIRAD 3 -Probably benign (Overall) Left breast DIAG MAMMO LEFT: BIRAD 3 -probably benign finding. RECOMMENDATION: Follow-up diagnostic mammogram of the left breast in 6 months.
--- NOTE | 2016-08-03 13:41 | ED Abdominal Pain ---
General Stated Complaint: ABD PAIN Source of Information: Patient Exam Limitations: No Limitations History of Present Illness Time Seen By Provider: 13:15 Initial Comments Here with report of right upper quadrant abdominal pain. Patient has history of Crohn's disease and is on IV immunoglobulin modulator infusion. Noted the right upper quadrant pain over the last couple of days. Her wool handler would like her to get right upper quadrant ultrasound but was unable to facilitate that and requested that she go to the ER for further evaluation. She has had her chronic diarrhea and even somewhat blood but states that is not out of character for her. Denies fever or chills. Does note that her blood pressure has increased over the last year and a half and she is working on further evaluation for that. She will see her primary care doctor at the [facility] later this week for evaluation for her blood pressure. Timing/Duration: 3-4 Days Severity/Quality: Moderate, Aching Location: RUQ Radiation: No Radiation Activities at Onset: None Associated Symptoms: No Back Pain, No Chest Pain, No Fever/Chills, No Nausea/ Vomiting, No Shortness of Air, No Weakness Allergies and Home Medications Allergies Coded Allergies: tramadol (Verified Allergy, Unknown, 02/15/11) Uncoded Allergies: IV contrast (Allergy, Mild, RASH, 08/03/16) Home Medications Cholecalciferol (Vitamin D3) 1,000 Unit Tablet 1,000 UNIT PO DAILY (Reported) Cholecalciferol (Vitamin D3) 50,000 Unit Capsule 84Days 50,000 UNIT PO every 7 days (Reported) Cyanocobalamin 1,000 Mcg/Ml Inj 1 ML IJ every 30 days (Reported) Cyclosporine 1 Each Droperette 1 EACH OP HS (Reported) Diphenhydramine HCl 25 Mg Capsule 25 MG PO HS (Reported) Erythromycin/Benzoyl Peroxide 46.6 Gm Gel..gram. 46.6 GM TP DAILY PRN PRN acne ( Reported) Famotidine 40 Mg Tablet 40 MG PO HS (Reported) Fluocinonide/Emollient Base 15 Gm Cream..g. 15 GM TP BID PRN PRN affected area ( Reported) Montelukast Sodium 10 Mg Tablet 10 MG PO HS (Reported) Omeprazole Magnesium 20 Mg Tablet.dr 40 MG PO BIDAC (Reported) Ondansetron HCl 4 Mg Tab 4 MG PO Q8H PRN PRN NAUSEA/VOMITING (Reported) Phenazopyridine HCl 100 Mg Tablet 100 MG PO TID PRN PRN dysuria (Reported) Promethazine HCl 25 Mg Tablet 25 MG PO Q6H PRN PRN NAUSEA/VOMITING (Reported) Spironolactone 50 Mg Tablet 100 MG PO daily with food (Reported) Sumatriptan Succinate 25 Mg Tablet 25 MG PO every 2 hours PRN PRN MIGRAINE ( Reported) Tretinoin/Emollient Base 60 Gm Cream..g. 0.1 TP HS (Reported) Valacyclovir HCl 500 Mg Tablet 2,000 MG PO BID PRN PRN herpes outbreak (Reported ) Vedolizumab 300 Mg Vial 300 MG IV NEEDED (Reported) Zolpidem Tartrate 12.5 Mg Tab.mphase 12.5 MG PO HS (Reported) Review of Systems Constitutional: see HPINo chills, No fever EENTM: No Symptoms Reported Respiratory: No Symptoms Reported Cardiovascular: No Symptoms Reported Gastrointestinal: See HPI Abdominal Pain DiarrheaDenies Nausea, Denies Vomiting Genitourinary: No Symptoms Reported Musculoskeletal: no symptoms reported Skin: no symptoms reported Psychiatric/Neurological: No Symptoms Reported All Other Systems Reviewed Negative Unless Noted: Yes Past Dsbjmve-Spxgfv-Jedooo Hx Patient Social History Alcohol Use: Denies Use Recreational Drug Use: No Smoking Status: Never a Smoker Recent Foreign Travel: No Contact w/Someone Who Travel: No Surgeries HX Surgeries: Yes Surgeries: Abdominal, Adenoidectomy, Bladder Surgery, Tonsillectomy Respiratory Hx Respiratory Disorders: No Cardiovascular Hx Cardiac Disorders: No Neurological Hx Neurological Disorders: No Reproductive System Hx Reproductive Disorders: No Genitourinary Hx Genitourinary Disorders: Yes Gastrointestinal Hx Gastrointestinal Disorders: Yes Gastrointestinal Disorders: Abdominal Hernia, Crohns Disease Musculoskeletal Hx Musculoskeletal Disorders: No Endocrine Hx Endocrine Disorders: No HEENT HX ENT Disorders: No Psychosocial Hx Psychiatric Problems: Yes Blood Transfusions Hx Blood Disorders: Yes Reviewed Nursing Assessment Reviewed/Agree w Nursing PMH: Yes Family Medical History Significant Family History: No Pertinent Family Hx Physical Exam Vital Signs VS - Last 72 Hours, by Label 08/03/16 13:25 Temp 98.7 Pulse 104 Resp 20 B/P 163/115 Pulse Ox 97 O2 Delivery Room Air Capillary Refill : General Appearance: WD/WN no apparent distress HEENT: PERRL/EOMI pharynx normal Neck: full range of motion supple Respiratory: lungs clear normal breath sounds Cardiovascular: regular rate, rhythm no murmur Gastrointestinal: softNo guarding, No rebound, tenderness (right upper quadrant mild) Extremities: non-tender normal inspection Back: normal inspection no CVA tenderness no vertebral tenderness Neurologic/Psychiatric: alert oriented x 3 Skin: normal color warm/dry Progress/Results/Core Measures Results/Orders Lab Results Laboratory Tests Test 08/03/16 13:00 08/03/16 14:43 Range/Units Urine Bacteria NEGATIVE /HPF Urine Bilirubin NEGATIVE NEGATIVE Urine Casts NONE /LPF Urine Clarity CLEAR Urine Color YELLOW Urine Crystals NONE /LPF Urine Culture Indicated NO Urine Glucose (UA) NEGATIVE NEGATIVE Urine Ketones NEGATIVE NEGATIVE Urine Leukocyte Esterase NEGATIVE NEGATIVE Urine Mucus NEGATIVE /LPF Urine Nitrite NEGATIVE NEGATIVE Urine Protein NEGATIVE NEGATIVE Urine RBC NONE /HPF Urine RBC (Auto) NEGATIVE NEGATIVE Urine Specific [place] 1.010 L 1.016-1.022 Urine Squamous Epithelial Cells 5-10 /HPF Urine Urobilinogen NORMAL NORMAL MG/DL Urine WBC NONE /HPF Urine pH 7 5-9 Alanine Aminotransferase (ALT/SGPT) 55 0-55 U/L Albumin 4.4 3.2-4.5 G/DL Alkaline Phosphatase 48 40-136 U/L Anion Gap 11 5-14 MMOL/L Aspartate Amino Transf (AST/SGOT) 26 5-34 U/L BUN/Creatinine Ratio 10 Basophils # (Auto) 0.0 0.0-0.1 10^3/uL Basophils (%) (Auto) 0 0-10 % Blood Urea Nitrogen 7 7-18 MG/DL C-Reactive Protein High Sensitivity 0.66 H 0.00-0.50 MG/DL Calcium Level 9.2 8.5-10.1 MG/DL Carbon Dioxide Level 21 21-32 MMOL/L Chloride Level 106 98-107 MMOL/L Creatinine 0.70 0.60-1.30 MG/DL Eosinophils # (Auto) 0.2 0.0-0.3 10^3/uL Eosinophils (%) (Auto) 2 0-10 % Erythrocyte Sedimentation Rate 9 0-20 MM/HR Estimat Glomerular Filtration Rate > 60 Glucose Level 93 70-105 MG/DL Hematocrit 43 35-52 % Hemoglobin 14.6 11.5-16.0 G/DL Lymphocytes # (Auto) 2.7 1.0-4.0 X 10^3 Lymphocytes (%) (Auto) 29 12-44 % Magnesium Level 2.3 1.8-2.4 MG/DL Mean Corpuscular Hemoglobin 31 25-34 PG Mean Corpuscular Hemoglobin Concent 34 32-36 G/DL Mean Corpuscular Volume 89 80-99 FL Mean Platelet Volume 10.1 7.4-10.4 FL Monocytes # (Auto) 0.7 0.0-1.0 X 10^3 Monocytes (%) (Auto) 8 0-12 % Neutrophils # (Auto) 5.5 1.8-7.8 X 10^3 Neutrophils (%) (Auto) 61 42-75 % Platelet Count 377 130-400 10^3/uL Potassium Level 4.5 3.6-5.0 MMOL/L Red Blood Count 4.76 4.35-5.85 10^6/uL Red Cell Distribution Width 12.8 10.0-14.5 % Sodium Level 138 135-145 MMOL/L Total Bilirubin 0.4 0.1-1.0 MG/DL Total Protein 7.2 6.4-8.2 G/DL White Blood Count 9.1 4.3-11.0 10^3/uL My Orders Orders-RYAN STARR MD Cbc With Automated Diff (08/03/16 13:23) Comprehensive Metabolic Panel (08/03/16 13:23) Hs C Reactive Protein (08/03/16 13:23) Erythrocyte Sedimentation Rate (08/03/16 13:23) Magnesium (08/03/16 13:23) Ua Culture If Indicated (08/03/16 13:23) Us Gallbladder [id number] (08/03/16 13:42) Chest Pa/Lat (2 View) (08/03/16 15:21) Diphenhydramine Injection (Benadryl Inje (08/03/16 16:53) Methylprednisolone Sod Succ (Solu-Medrol (08/03/16 16:53) Ns Iv 1000 Ml (Sodium Chloride 0.9%) (08/03/16 16:53) Ct Angio Chest W (08/03/16 16:55) Diphenhydramine Injection (Benadryl Inje (08/03/16 16:53) Methylprednisolone Sod Succ (Solu-Medrol (08/03/16 16:53) Iohexol Injection (Omnipaque 350 Mg/Ml 1 (08/03/16 17:15) Ns (Ivpb) (Sodium Chloride 0.9% Ivpb Bag (08/03/16 17:15) Medications Given in ED Current Medications Medications Dose Ordered Sig/Moises Route Start Time Stop Time Status Last Admin Dose Admin Iohexol 150 ml ONCE ONCE IV 08/03/16 17:15 08/03/16 17:16 DC 08/03/16 17:18 125 ML Sodium Chloride 100 ml ONCE ONCE IV 08/03/16 17:15 08/03/16 17:16 DC 08/03/16 17:18 80 ML Sodium Chloride 1,000 ml @ 0 mls/hr Q0M ONCE IV 08/03/16 16:53 08/03/16 16:55 DC 08/03/16 17:00 0 MLS/HR Vital Signs/I&O Vital Sign - Last 12Hours 08/03/16 13:25 Temp 98.7 Pulse 104 Resp 20 B/P 163/115 Pulse Ox 97 O2 Delivery Room Air Progress Note : Progress Note Seen and evaluated. Labs, IV and right upper quadrant ultrasound ordered. CXR added. No acute findings. All findings are negative for any concerning current issues. I will discuss the case with her GI specialist, Dr. Bell at . He has been paged at [phone]. [phone]: I did discuss the case with Dr. Bell. We have reviewed all the laboratory findings and data. There is still concern for pulmonary embolism. Patient did have tachycardia on arrival but no hypoxemia. In discussing risk and benefits we agree that this is still a concern. I did discuss this with the patient. After discussing risk and benefits of radiation, we have opted to do CT angiogram of the chest. As far as other findings related to Crohn's flare, there is no laboratory indication currently and there is no ultrasound findings of liver or gallbladder dysfunction. We will rule out PE. If this is negative, patient will be discharged home. 1800: CT angiogram of the chest is negative for pulmonary embolism. Visualized portions of the abdomen are negative. Patient feels better now after Solu-Medrol. She will call her GI doctor in the morning for additional instructions including possibility of steroids if indicated. Discharged home with return precautions. Patient verbalize understanding instructions and agreement with plan. Diagnostic Imaging Diagonstic Imaging: Ultrasound Plain Films/CT/US/NM/MRI: abdomen Comments NAME: [facility] REC#: [id number] PT STATUS: REG ER : 1975 PHYSICIAN: RYAN STARR MD ADMIT DATE: 08/03/16/ER Signed Date of Exam: 08/03/16 US GALLBLADDER [id number] PROCEDURE: US Gallbladder. TECHNIQUE: Multiple real-time grayscale images were obtained over the right upper quadrant in various projections. INDICATION: Right upper quadrant pain. FINDINGS: The visualized portions of the pancreas appear unremarkable. The liver demonstrates no focal lesion. Hepatopetal flow in the portal vein seen. The gallbladder demonstrate no stones or wall thickening. No pericholecystic fluid. Sonographic Young sign reportedly negative. The CBD is 5 mm in caliber. No fluid collection or free fluid in the right upper quadrant seen. IMPRESSION: Unremarkable exam. Dictated by: Dictated on workstation # [id number] Dict: 08/03/16 1437 Trans: 08/03/16 1443 [id number] Interpreted by: TABBY MCKEON MD Electronically signed by:TABBY MCKEON MD 08/03/16 1446 Diagonstic Imaging: Xray Plain Films/CT/US/NM/MRI: chest Comments NAME: EVE MCCOY [facility] REC#: [id number] PT STATUS: REG ER : 1975 PHYSICIAN: RYAN STARR MD ADMIT DATE: 08/03/16/ER Signed Date of Exam: 08/03/16 CHEST PA/LAT (2 VIEW) PA and lateral views of the chest Indication: Right-sided chest pain Comparison 08/20/11 Findings: The lungs are clear. The heart size is normal. There is no effusion or pneumothorax The mediastinum and constance appear unremarkable. Impression: Unremarkable study. Dictated by: Dictated on workstation # [id number] Dict: 08/03/16 1552 Trans: 08/03/16 1553 [facility] [id number] Interpreted by: TABBY MCKEON MD Electronically signed by:TABBY MCKEON MD 08/03/16 1556 Diagonstic Imaging: CT Plain Films/CT/US/NM/MRI: chest Comments NAME: EVE MCCOY [facility] REC#: [id number] PT STATUS: REG ER : 1975 PHYSICIAN: RYAN STARR MD ADMIT DATE: 08/03/16/ER Draft Date of Exam:08/03/16 CT ANGIO CHEST W PROCEDURE: CT angiography of the chest with contrast. TECHNIQUE: Multiple contiguous axial images were obtained through the chest after uneventful bolus administration of intravenous contrast. Reconstructed CTA MIP acquisitions were also performed. INDICATION: Tachycardia, right upper chest pain. CONTRAST: 125 mL of Omnipaque-350 was administered intravenously. COMPARISON STUDY: CT scan of the abdomen and pelvis from 2012. FINDINGS: No pulmonary emboli, aortic dissection or aneurysm is present. The heart size is normal. No arterial sclerosis is identified. The lungs are clear. No pleural or pericardial effusions are present. There is no abnormal adenopathy. The visualized portions of the abdomen appear normal. The osseous structures appear normal. IMPRESSION: Normal CTA of the chest. Dictated on workstation # [id number] Dict: 08/03/16 1731 Trans: 08/03/16 1757 [id number] Interpreted by: CAMELIA HILL MD Electronically signed by: Departure Impression Impression: Primary Impression: Right upper quadrant abdominal pain Disposition: 01 HOME, SELF-CARE Condition: Improved Departure-Patient Inst. Decision time for Depature: 18:05 Referrals: NO,LOCAL PHYSICIAN (PCP/Family) Primary Care Physician Patient Instructions: Acute Abdomen (Belly Pain), Adult (DC) Add. Discharge Instructions: Continue home medications as directed. Drink plenty of fluids tonight to help flush contrast through. Call your GI doctor in the morning for further instructions. You can discuss with him about the possibility of a few days for the steroids if indicated. Return for worse pain, fever, vomiting, weakness, breathing problems or other concerns as needed. You may take your home pain medicines as prescribed as needed for your pain. RYAN STARR MD Aug 03, 2016 13:41
[2016-08-03 13:43] LABS: BILIRUBIN,URINE NEGATIVE (NEGATIVE); KETONES,URINE NEGATIVE (NEGATIVE); LEUKOCYTE ESTERASE ,URINE NEGATIVE (NEGATIVE); NITRITE,URINE NEGATIVE (NEGATIVE); PH,URINE 7 (5-9); PROTEIN,URINE NEGATIVE (NEGATIVE); UROBILINOGEN,URINE NORMAL (NORMAL)
[2016-08-03] MEDS ORDERED: MONT10TA21 PO (14:04)
[2016-08-03] MEDS ORDERED: ZOLP12.5 PO (14:04)
[2016-08-03] MEDS ORDERED: SPIR50TA PO (14:04)
[2016-08-03] MEDS ORDERED: DIPH25CA79 PO (14:04)
[2016-08-03] MEDS ORDERED: TRET60CR TP (14:04)
[2016-08-03] MEDS ORDERED: FAMO40TA72 PO (14:04)
[2016-08-03] MEDS ORDERED: [UNRECOGNIZED DRUG - CODE] TP (14:04)
[2016-08-03] MEDS ORDERED: CHOL500049 PO (14:04)
[2016-08-03] MEDS ORDERED: VALA500T4 PO (14:04)
[2016-08-03] MEDS ORDERED: CYCL1DRO OP (14:04)
[2016-08-03] MEDS ORDERED: FLUO15CR2 TP (14:04)
[2016-08-03] MEDS ORDERED: CHOL10003 PO (14:04)
[2016-08-03] MEDS ORDERED: SUMA25TA3 PO (14:04)
[2016-08-03] MEDS ORDERED: PROM25TA14 PO (14:04)
[2016-08-03] MEDS ORDERED: VEDO300V IV (14:04)
[2016-08-03] MEDS ORDERED: ONDN4T PO (14:04)
[2016-08-03] MEDS ORDERED: CNC1KV IJ (14:04)
[2016-08-03] MEDS ORDERED: OMEP20TA33 PO (14:04)
[2016-08-03] MEDS ORDERED: PHEN-639 PO (14:04)
--- NOTE | 2016-08-03 14:42 | Diagnostic Imaging Report ---
PROCEDURE: US Gallbladder. TECHNIQUE: Multiple real-time grayscale images were obtained over the right upper quadrant in various projections. INDICATION: Right upper quadrant pain. FINDINGS: The visualized portions of the pancreas appear unremarkable. The liver demonstrates no focal lesion. Hepatopetal flow in the portal vein seen. The gallbladder demonstrate no stones or wall thickening. No pericholecystic fluid. Sonographic Young sign reportedly negative. The CBD is 5 mm in caliber. No fluid collection or free fluid in the right upper quadrant seen. IMPRESSION: Unremarkable exam. Dictated by: Dictated on workstation # [id number]
[2016-08-03 14:52] LABS: BASOPHILS % (AUTO) 0 % (0-10); EOSINOPHILS # (AUTO) 0.2 10^3/uL (0.0-0.3); EOSINOPHILS % (AUTO) 2 % (0-10); LYMPHOCYTES # (AUTO) 2.7 X 10^3 (1.0-4.0); LYMPHOCYTES % (AUTO) 29 % (12-44); MEAN CORPUSCULAR HEMOGLOBIN 31 PG (25-34); MEAN CORPUSCULAR HGB CONC 34 G/DL (32-36); MEAN CORPUSCULAR VOLUME 89 FL (80-99); MEAN PLATELET VOLUME 10.1 FL (7.4-10.4); MONOCYTES # (AUTO) 0.7 X 10^3 (0.0-1.0); MONOCYTES % (AUTO) 8 % (0-12); NEUTROPHILS # (AUTO) 5.5 X 10^3 (1.8-7.8); NEUTROPHILS % (AUTO) 61 % (42-75); PLATELET COUNT 377 10^3/uL (130-400); RED BLOOD COUNT 4.76 10^6/uL (4.35-5.85); RED CELL DISTRIBUTION WIDTH 12.8 % (10.0-14.5); WHITE BLOOD COUNT 9.1 10^3/uL (4.3-11.0)
[2016-08-03 15:09] LABS: ALANINE AMINOTRANSFERASE 55 U/L (0-55); ALBUMIN 4.4 G/DL (3.2-4.5); ANION GAP 11 MMOL/L (5-14); ASPARTATE AMINO TRANSFERASE 26 U/L (5-34); BILIRUBIN,TOTAL 0.4 MG/DL (0.1-1.0); BLOOD UREA NITROGEN 7 MG/DL (7-18); BUN/CREATININE RATIO 10; CALCIUM 9.2 MG/DL (8.5-10.1); CARBON DIOXIDE 21 MMOL/L (21-32); CHLORIDE 106 MMOL/L (98-107); GFR ESTIMATED > 60; GLUCOSE 93 MG/DL (70-105); MAGNESIUM 2.3 MG/DL (1.8-2.4); POTASSIUM 4.5 MMOL/L (3.6-5.0); SODIUM 138 MMOL/L (135-145); TOTAL PROTEIN 7.2 G/DL (6.4-8.2); hs C REACTIVE PROTEIN 0.66 MG/DL (0.00-0.50)
[2016-08-03 15:13] LABS: ERYTHROCYTE SEDIMENTATION RATE 9 MM/HR (0-20)
--- NOTE | 2016-08-03 15:56 | Diagnostic Imaging Report ---
PA and lateral views of the chest Indication: Right-sided chest pain Comparison 08/20/11 Findings: The lungs are clear. The heart size is normal. There is no effusion or pneumothorax The mediastinum and constance appear unremarkable. Impression: Unremarkable study. Dictated by: Dictated on workstation # [id number]
[2016-08-03] MEDS ORDERED: diphenhydrAMINE 50 MG/ML INJ (BENADRYL) IV STA (16:53)
[2016-08-03] MEDS ORDERED: methylPREDNISolone 125 MG (Solu-MEDROL) VIAL IV STA (16:53)
[2016-08-03] MEDS ORDERED: methylPREDNISolone 125 MG (Solu-MEDROL) VIAL ONE (16:53)
[2016-08-03] MEDS ORDERED: diphenhydrAMINE 50 MG/ML INJ (BENADRYL) ONE (16:53)
[2016-08-03] MEDS ORDERED: NS IV 1000 ML 1,000 ML IV ONE (16:53)
[2016-08-03] MEDS ORDERED: NS 100 ML (IVPB) BAG IV ONE (17:15)
[2016-08-03] MEDS ORDERED: IOHEXOL 350 MG/ML 150 ML (OMNIPAQUE 350) VIAL IV ONE (17:15)
--- NOTE | 2016-08-03 17:58 | Diagnostic Imaging Report ---
PROCEDURE: CT angiography of the chest with contrast. TECHNIQUE: Multiple contiguous axial images were obtained through the chest after uneventful bolus administration of intravenous contrast. Reconstructed CTA MIP acquisitions were also performed. INDICATION: Tachycardia, right upper chest pain. CONTRAST: 125 mL of Omnipaque-350 was administered intravenously. COMPARISON STUDY: CT scan of the abdomen and pelvis from 2011. FINDINGS: No pulmonary emboli, aortic dissection or aneurysm is present. The heart size is normal. No arterial sclerosis is identified. The lungs are clear. No pleural or pericardial effusions are present. There is no abnormal adenopathy. The visualized portions of the abdomen appear normal. The osseous structures appear normal. IMPRESSION: Normal CTA of the chest. Dictated by: Dictated on workstation # [id number]
[2016-08-03 18:17] VITALS: BP 142/101
== END 2016-08-03 18:17 | disposition home or self-care (01) ==
LOC: EDUNIT# 12:49 → ER 12:51
DX: R10.11 Right upper quadrant pain (principal); K50.90 Crohn's disease, unspecified, without complications
CPT/HCPCS: 36415; 71020; 71275; 76705; 80053; 81000; 83735; 85025; 85652; 86141; 96361; 96374; 96375

== ENCOUNTER → 2017-04-21 | Outpatient (CLI) | payer OTHER ==
[~2017-04-21] VITALS: Ht 162.6 cm; Wt 99.8 kg
[~2017-04-21] MED LIST changes: +CHOL10003 PO; +CHOL500049 PO; +CNC1KV IJ; +CYCL1DRO OP; +DIPH25CA79 PO; +FAMO40TA72 PO; +FLUO15CR2 TP; +MONT10TA21 PO; +OMEP20TA33 PO; +ONDN4T PO; +PHEN-639 PO; +PROM25TA14 PO; +SPIR50TA PO; +SUMA25TA3 PO; +TRET60CR TP; +VALA500T4 PO; +VEDO300V IV; +ZOLP12.5 PO; +[UNRECOGNIZED DRUG - CODE] TP
[2017-04-21 15:55] VITALS: BP 146/97
[2017-04-21 16:39] LABS: BASOPHILS % (AUTO) 0 % (0-10); EOSINOPHILS # (AUTO) 0.2 10^3/uL (0.0-0.3); EOSINOPHILS % (AUTO) 1 % (0-10); LYMPHOCYTES # (AUTO) 3.3 X 10^3 (1.0-4.0); LYMPHOCYTES % (AUTO) 21 % (12-44); MEAN CORPUSCULAR HEMOGLOBIN 31 PG (25-34); MEAN CORPUSCULAR HGB CONC 35 G/DL (32-36); MEAN CORPUSCULAR VOLUME 87 FL (80-99); MEAN PLATELET VOLUME 10.5 FL (7.4-10.4); MONOCYTES # (AUTO) 1.3 X 10^3 (0.0-1.0); MONOCYTES % (AUTO) 8 % (0-12); NEUTROPHILS % (AUTO) 69 % (42-75); PLATELET COUNT 440 10^3/uL (130-400); RED CELL DISTRIBUTION WIDTH 12.9 % (10.0-14.5); WHITE BLOOD COUNT 15.8 10^3/uL (4.3-11.0)
[2017-04-21 16:56] LABS: ALANINE AMINOTRANSFERASE 21 U/L (0-55); ALBUMIN 4.3 GM/DL (3.2-4.5); ANION GAP 10 MMOL/L (5-14); ASPARTATE AMINO TRANSFERASE 15 U/L (5-34); BILIRUBIN,TOTAL 0.7 MG/DL (0.1-1.0); BLOOD UREA NITROGEN 12 MG/DL (7-18); BUN/CREATININE RATIO 15; CALCIUM 9.2 MG/DL (8.5-10.1); CARBON DIOXIDE 22 MMOL/L (21-32); CHLORIDE 105 MMOL/L (98-107); CREATININE SERUM 0.79 MG/DL (0.60-1.30); GFR ESTIMATED > 60; GLUCOSE 103 MG/DL (70-105); POTASSIUM 4.2 MMOL/L (3.6-5.0); SODIUM 137 MMOL/L (135-145); TOTAL PROTEIN 7.7 GM/DL (6.4-8.2)
[2017-04-21 17:01] LABS: BAND NEUTROPHILS 1 %; BASOPHILS % (MANUAL) 0 %; EOSINOPHILS % (MANUAL) 2 %; LYMPHOCYTES % (MANUAL) 37 %; NEUTROPHILS % (MANUAL) 55 %
== END ==
LOC: SDC 15:43
PROVIDERS: ATTEND Internal Medicine Gastroenterology
DX: K50.90 Crohn's disease, unspecified, without complications (principal)
CPT/HCPCS: 36415; 80053; 85007; 85027; 99211

== ENCOUNTER 2020-07-02 16:39 | Emergency (ER) | payer BC ==
[~2020-07-02] VITALS: Ht 162.5 cm; Wt 111.1 kg
--- NOTE | 2020-07-02 16:51 | ED General ---
General Stated Complaint: HIGH BP Source of Information: Patient History of Present Illness Date Seen by Provider: Jul 02, 2020 Time Seen by Provider: 16:51 Initial Comments Patient presents with concern for high blood pressure. Patient reports that she gets a shot for a biologic for autoimmune disease and Crohn's. Reports that she got 1 last week that was late. Every since she got the shot she has not felt well. She felt like her chest was a little tight today, had a mild headache and some generalized malaise still so she took her blood pressure. There was systolics were elevated in the 180s to 190s with high diastolic. She took it 3 times. Because it remained high over the course of about 2 to 1/2-hour she presents to the ER. Patient at this time is fairly anxious but the rest of her symptoms besides her generalized malaise have improved. Patient not having shortness of breath. She did take an atenolol around 2-30. She takes atenolol 50 mg. Allergies and Home Medications Allergies Coded Allergies: tramadol (Verified Allergy, Unknown, 02/15/11) Uncoded Allergies: IV contrast (Allergy, Mild, RASH, 08/03/16) Home Medications Cholecalciferol (Vitamin D3) 1,000 Unit Tablet, 1,000 UNIT PO DAILY, (Reported) Cholecalciferol (Vitamin D3) 50,000 Unit Capsule, 50,000 UNIT PO every 7 days, (Reported) Cyanocobalamin 1,000 Mcg/Ml Inj, 1 ML IJ every 30 days, (Reported) Cyclosporine 1 Each Droperette, 1 EACH OP HS, (Reported) Diphenhydramine HCl 25 Mg Capsule, 25 MG PO HS, (Reported) Erythromycin/Benzoyl Peroxide 46.6 Gm Gel..gram., 46.6 GM TP DAILY PRN for acne, (Reported) Famotidine 40 Mg Tablet, 40 MG PO HS, (Reported) Fluocinonide/Emollient Base 15 Gm Cream..g., 15 GM TP BID PRN for affected area, (Reported) Montelukast Sodium 10 Mg Tablet, 10 MG PO HS, (Reported) Omeprazole Magnesium 20 Mg Tablet.dr, 40 MG PO BIDAC, (Reported) Ondansetron HCl 4 Mg Tab, 4 MG PO Q8H PRN for NAUSEA/VOMITING, (Reported) Phenazopyridine HCl 100 Mg Tablet, 100 MG PO TID PRN for dysuria, (Reported) Promethazine HCl 25 Mg Tablet, 25 MG PO Q6H PRN for NAUSEA/VOMITING, (Reported) Spironolactone 50 Mg Tablet, 100 MG PO daily with food, (Reported) Sumatriptan Succinate 25 Mg Tablet, 25 MG PO every 2 hours PRN for MIGRAINE, (Reported) Tretinoin/Emollient Base 60 Gm Cream..g., 0.1 TP HS, (Reported) Valacyclovir HCl 500 Mg Tablet, 2,000 MG PO BID PRN for herpes outbreak, (Reported) Vedolizumab 300 Mg Vial, 300 MG IV NEEDED, (Reported) Zolpidem Tartrate 12.5 Mg Tab.mphase, 12.5 MG PO HS, (Reported) Patient Home Medication List Home Medication List Reviewed: Yes Review of Systems Review of Systems Constitutional: No chills, No fever; malaise Respiratory: No cough, No short of breath Cardiovascular: see HPI; No chest pain Gastrointestinal: abdominal pain (Diffuse, mild and chronic from Crohn's) Genitourinary: no symptoms reported Musculoskeletal: no symptoms reported Skin: no symptoms reported Psychiatric/Neurological: Headache; Denies Numbness, Denies Paresthesia, Denies Weakness Hematologic/Lymphatic: See HPI Immunological/Allergic: see HPI Past Ikpepas-Mgaauf-Okcakl Hx Past Med/Social Hx: Reviewed Nursing Past Med/Soc Hx Patient Social History 2nd Hand Smoke Exposure: No Recent Hopitalizations: Yes Immunizations Up To Date Tetanus Booster (TDap): Less than 5yrs Past Medical History Abdominal, Adenoidectomy, Bladder Surgery, Tonsillectomy Reproductive Disorders: No Abdominal Hernia, Crohns Disease Family Medical History No Pertinent Family Hx Physical Exam Vital Signs Vital Signs - First Documented 07/02/20 16:45 Temp 36.7 Pulse 73 Resp 17 B/P (MAP) 189/132 (151) Pulse Ox 98 O2 Delivery Room Air Capillary Refill : Height, Weight, BMI Height: 5'4.00" Weight: 220lbs. 0.4oz. 99.989527yy; BMI Method:Stated General Appearance: Anxious Eyes: Bilateral Eye Normal Inspection, Bilateral Eye PERRL Neck: Normal Inspection, Non Tender Respiratory: Lungs Clear, Normal Breath Sounds Cardiovascular: Regular Rate, Rhythm, No Edema Gastrointestinal: Soft, Tenderness (Mild diffuse tenderness) Extremity: Normal Capillary Refill, Normal Inspection, Normal Range of Motion Neurologic/Psychiatric: Oriented x3, No Motor/Sensory Deficits, Normal Mood /Affect, log brander II-XII Norm as Tested Skin: Normal Color, Warm/Dry Progress/Results/Core Measures Suspected Sepsis SIRS Temperature: Pulse: Respiratory Rate: Laboratory Tests 07/02/20 17:08: White Blood Count 11.0 Blood Pressure / Mean: Laboratory Tests 07/02/20 17:08: Creatinine 0.73, Platelet Count 430H Results/Orders Lab Results Laboratory Tests Test 07/02/20 17:08 Range/Units White Blood Count 11.0 4.3-11.0 10^3/uL Red Blood Count 4.90 3.80-5.11 10^6/uL Hemoglobin 15.0 11.5-16.0 g/dL Hematocrit 44 35-52 % Mean Corpuscular Volume 91 80-99 fL Mean Corpuscular Hemoglobin 31 25-34 pg Mean Corpuscular Hemoglobin Concent 34 32-36 g/dL Red Cell Distribution Width 12.9 10.0-14.5 % Platelet Count 430 H 130-400 10^3/uL Mean Platelet Volume 10.1 9.0-12.2 fL Immature Granulocyte % (Auto) 0 % Neutrophils (%) (Auto) 57 42-75 % Lymphocytes (%) (Auto) 32 12-44 % Monocytes (%) (Auto) 8 0-12 % Eosinophils (%) (Auto) 2 0-10 % Basophils (%) (Auto) 1 0-10 % Neutrophils # (Auto) 6.2 1.8-7.8 10^3/uL Lymphocytes # (Auto) 3.6 1.0-4.0 10^3/uL Monocytes # (Auto) 0.9 0.0-1.0 10^3/uL Eosinophils # (Auto) 0.2 0.0-0.3 10^3/uL Basophils # (Auto) 0.1 0.0-0.1 10^3/uL Immature Granulocyte # (Auto) 0.0 0.0-0.1 10^3/uL Sodium Level 136 135-145 MMOL/L Potassium Level 4.8 3.6-5.0 MMOL/L Chloride Level 104 98-107 MMOL/L Carbon Dioxide Level 25 21-32 MMOL/L Anion Gap 7 5-14 MMOL/L Blood Urea Nitrogen 12 7-18 MG/DL Creatinine 0.73 0.60-1.30 MG/DL Estimat Glomerular Filtration Rate > 60 BUN/Creatinine Ratio 16 Glucose Level 89 70-105 MG/DL Calcium Level 9.2 8.5-10.1 MG/DL Magnesium Level 2.2 1.6-2.4 MG/DL Troponin I < 0.028 <0.028 NG/ML My Orders Orders - ALEXANDRA MULLIGAN DO Basic Metabolic Panel (07/02/20 16:51) Cbc With Automated Diff (07/02/20 16:51) Magnesium (07/02/20 16:51) Troponin I (07/02/20 16:51) Ed Iv/Invasive Line Start (07/02/20 16:51) Ekg Tracing (07/02/20 16:51) Metoprolol Tartrate Injection (Lopressor (07/02/20 17:30) Vital Signs/I&O 07/02/20 16:45 Temp 36.7 Pulse 73 Resp 17 B/P (MAP) 189/132 (151) Pulse Ox 98 O2 Delivery Room Air Capillary Refill : Progress Note : Time: 17:43 Progress Note Patient's lab and EKG were normal with no acute findings. Patient's blood pressure was initially high but throughout her stay it came down with no further medication. Her last 3 blood pressures were systolics 140s to 150s with diastolics in the 80s. I discussed with her the need to follow-up with her primary care provider and review her blood pressure medications and possible adjustments that might be needed. Patient's stable and discharged ECG Initial ECG Impression Date: Jul 02, 2020 Initial ECG Impression Time: 16:59 Initial ECG Rate: 70 Initial ECG Rhythm: Normal Sinus Initial ECG Intervals: Normal Initial ECG Impression: Normal Comment No acute findings Departure Impression Primary Impression: Elevated blood pressure reading Disposition: 01 HOME, SELF-CARE Condition: Stable Departure-Patient Inst. Referrals: NO,LOCAL PHYSICIAN (PCP/Family) Primary Care Physician Patient Instructions: High Blood Pressure in Adults, Medicines for High Blood Pressure Add. Discharge Instructions: Follow-up with your primary care provider to review your blood pressure medications and current medications to make adjustments as needed ALEXANDRA MULLIGAN DO Jul 02, 2020 16:51
[2020-07-02 17:15] LABS: BASOPHILS # (AUTO) 0.1 10^3/uL (0.0-0.1); BASOPHILS % (AUTO) 1 % (0-10); EOSINOPHILS # (AUTO) 0.2 10^3/uL (0.0-0.3); EOSINOPHILS % (AUTO) 2 % (0-10); HEMATOCRIT 44 % (35-52); LYMPHOCYTES # (AUTO) 3.6 10^3/uL (1.0-4.0); LYMPHOCYTES % (AUTO) 32 % (12-44); MEAN CORPUSCULAR HEMOGLOBIN 31 pg (25-34); MEAN CORPUSCULAR HGB CONC 34 g/dL (32-36); MEAN CORPUSCULAR VOLUME 91 fL (80-99); MEAN PLATELET VOLUME 10.1 fL (9.0-12.2); MONOCYTES # (AUTO) 0.9 10^3/uL (0.0-1.0); MONOCYTES % (AUTO) 8 % (0-12); NEUTROPHILS # (AUTO) 6.2 10^3/uL (1.8-7.8); NEUTROPHILS % (AUTO) 57 % (42-75); PLATELET COUNT 430 10^3/uL (130-400)
[2020-07-02 17:23] LABS: CHLORIDE 104 MMOL/L (98-107); POTASSIUM 4.8 MMOL/L (3.6-5.0); SODIUM 136 MMOL/L (135-145)
[2020-07-02 17:25] LABS: CALCIUM 9.2 MG/DL (8.5-10.1); GLUCOSE 89 MG/DL (70-105)
[2020-07-02 17:27] LABS: CARBON DIOXIDE 25 MMOL/L (21-32)
[2020-07-02 17:29] LABS: CREATININE SERUM 0.73 MG/DL (0.60-1.30); GFR ESTIMATED > 60
[2020-07-02 17:30] LABS: BUN/CREATININE RATIO 16
[2020-07-02] MEDS ORDERED: meTOprolol 5 MG/5 ML (LOPRESSOR) VIAL IV ONE (17:30)
[2020-07-02 17:32] LABS: MAGNESIUM 2.2 MG/DL (1.6-2.4)
[2020-07-02 17:58] VITALS: BP 127/85
== END 2020-07-02 17:58 | disposition home or self-care (01) ==
LOC: EDUNIT# 16:39 → ER 16:41
DX: R03.0 Elevated blood-pressure reading, without diagnosis of hypertension (principal); F41.9 Anxiety disorder, unspecified; K50.90 Crohn's disease, unspecified, without complications; Z88.6 Allergy status to analgesic agent; Z91.041 Radiographic dye allergy status
CPT/HCPCS: 36415; 80048; 83735; 84484; 85025; 93005

== ENCOUNTER → 2022-06-09 | Outpatient (CLI) | payer BC ==
--- NOTE | 2022-06-09 17:06 | Diagnostic Imaging Report ---
EXAMINATION: Chest 2 view HISTORY: WEAKNESS COMPARISON: 08/03/2016 FINDINGS: Heart size and pulmonary vasculature are normal. The lungs are clear without consolidation, pleural effusion, or pneumothorax. The osseous structures are intact. IMPRESSION: 1. No acute radiographic abnormality in the chest. Dictated by: Dictated on workstation # [id number]
== END ==
LOC: RAD 15:17
PROVIDERS: ATTEND Nurse Practitioner Family
DX: R53.1 Weakness (principal)
CPT/HCPCS: 71046